=== PATIENT | male | born 1970 | race Two or more races ===

== ENCOUNTER 2020-04-05 08:45 | Inpatient (IN) | payer OTHER ==
[~2020-04-05] VITALS: Ht 167.6 cm; Wt 101.2 kg
[2020-04-05] VITALS (14 sets, daily range): BP systolic 103–130; BP diastolic 49–79
--- NOTE | 2020-04-05 10:22 | Pre-Procedure Note/Attestation ---
Pre-Procedure Note/Attestation Complete Prior to Procedure Planned Procedure: not applicable Procedure Narrative: For Anterior Lumbar Decompression and fusion with internal fixation L4-L5 Indications for Procedure Pre-Operative Diagnosis: Instability L4-5 Attestation I attest that I discussed the nature of the procedure; its benefits; risks and complications; and alternatives (and the risks and benefits of such alternatives), prior to the procedure, with the patient (or the patient's legal key account representative). I attest that, if there was a reasonable possibility of needing a blood transfusion, the patient (or the patient's legal key account representative) was given the [facility] standardized written summary, pursuant to the Jhon Lele Blood Safety Act ([place] Health and Safety Code # 1645, as amended). I attest that I re-evaluated the patient just prior to the surgery and that there has been no change in the patient's H&P, except as documented below: Barrington Mckoy Apr 05, 2020 10:22
[2020-04-05] MEDS ORDERED: Thrombin 5000 units TOPIC ONE (10:46)
[2020-04-05] MEDS ORDERED: Ropivacaine 5mg/ml Vial 30ml INJ ONE (10:46)
[2020-04-05] MEDS ORDERED: Gelfoam Size TOPIC ONE (10:46)
[2020-04-05] MEDS ORDERED: Heparin 5000 units/ml inj ONE (10:46)
[2020-04-05] MEDS ORDERED: Bacitracin 50000 Units Vial ONE (10:46)
[2020-04-05] MEDS ORDERED: Rocuronium Bromide 50mg/5ml Inj IV ONE (10:51)
[2020-04-05] MEDS ORDERED: Ketorolac 30mg Inj IV PRN ×2 (11:10→11:15)
--- NOTE | 2020-04-05 11:10 | Anethesia Preoperative Eval ---
Anesthesia Pre-op PMH/ROS General Date of Evaluation: Apr 05, 2020 Time of Evaluation: 11:31 Anesthesiologist: Judd ASA Score: ASA 2 Mallampati Score Class I : Soft palate, uvula, fauces, pillars visible Class II: Soft palate, uvula, fauces visible Class III: Soft palate, base of uvula visible Class IV: Only hard plate visible Mallampati Classification: Class II Surgeon: Fang Diagnosis: Back Pain Surgical Procedure: ALIF L4-5 Family History: no anesthesia problems Allergies: Coded Allergies: PENICILLINS (Verified Allergy, Intermediate, throat got swollen, can't breath, 04/02/20) Medications: see eMAR Patient NPO?: Yes Past Medical History Hematology/Immune: Reports: other - Renal CA Other: obesity - BMI 37 Anesthesia Pre-op Phys. Exam Physician Exam Last Vital Signs Date Time Temp Pulse Resp B/P (MAP) Pulse Ox O2 Delivery O2 Flow Rate FiO2 04/05/20 09:47 98.0 78 20 124/77 (93) 97 Constitutional: NAD Neurologic: CN 2-12 intact Cardiovascular: RRR Respiratory: CTA Gastrointestinal: S/NT/ND Airway Exam Mallampati Score: Class II MO: full ROM: full Teeth: intact Anesthesia Pre-op A/P Risk Assessment & Plan Assessment: ASA 2 Plan: GA, SED, GlideScope Status Change Before Surgery: No Pre-Antibiotics Dru Grams Ancef IV Given Within 1 Hr of Incision: Yes Time Given: 12:16 Esteban Whaley MD Apr 05, 2020 11:10
[2020-04-05] MEDS ORDERED: Lidocaine 1% MPF 10mg/ml 5ml ONE (11:13)
[2020-04-05] MEDS ORDERED: Sodium Chloride 10ml vial INJ ONE (11:13)
[2020-04-05] MEDS ORDERED: Lidocaine 1% Plain 30 ml INJ ONE (11:14)
[2020-04-05] MEDS ORDERED: Acetaminophen (Non formulary) 100 ML IV ONE (11:15)
[2020-04-05] MEDS ORDERED: oxyCODONE HCL/Acetaminophen 5/325mg ORAL PRN (11:15)
[2020-04-05] MEDS ORDERED: DiphenhydrAMINE 50mg/ml Inj IVP PRN ×2 (11:15→14:00)
[2020-04-05] MEDS ORDERED: Atropine Sulfate 0.4mg/ml inj IVP PRN (11:15)
[2020-04-05] MEDS ORDERED: LORazepam Inj 2mg/ml 1ml IV PRN (11:15)
[2020-04-05] MEDS ORDERED: Meperidine 25mg/1ml Inj (FOR RIGORS ONLY) IV PRN (11:15)
[2020-04-05] MEDS ORDERED: fentaNYL 100 mcg/2 mL IV ONE ×2 (11:15→12:59)
[2020-04-05] MEDS ORDERED: HYDROcodone/Acetamin 5/325 tab ORAL PRN (11:15)
[2020-04-05] MEDS ORDERED: Midazolam 2mg/2ml Inj IVP PRN (11:15)
[2020-04-05] MEDS ORDERED: Labetalol 5mg/ml 20ml vial IV PRN (11:15)
[2020-04-05] MEDS ORDERED: fentaNYL 100 mcg/2 mL IV PRN (11:15)
[2020-04-05] MEDS ORDERED: Hydromorphone 0.5mg/0.5ml inj IVP PRN (11:15)
[2020-04-05] MEDS ORDERED: Metoclopramide 10mg/2ml Inj IVP PRN (11:15)
[2020-04-05] MEDS ORDERED: HYDROcodone/Acetamin 7.5/325 tab ORAL PRN ×3 (11:15→14:00)
[2020-04-05] MEDS ORDERED: LR 1000ml 1,000 ML IVLG SCH (11:15)
[2020-04-05] MEDS ORDERED: LR 1000ml ONE (11:30)
[2020-04-05] MEDS ORDERED: Sterile Water Irrig 1000ml IRRIG ONE (11:30)
[2020-04-05] MEDS ORDERED: NS Irrig 1000ml ONE (11:30)
[2020-04-05] MEDS ORDERED: propofoL 1,000mg/100ml IV ONE (11:30)
[2020-04-05] MEDS ORDERED: Neostigmine 1mg/ml 10ml Inj ONE (13:43)
[2020-04-05] MEDS ORDERED: Glycopyrrolate 0.2mg/ml 1ml Vial ONE (13:43)
--- NOTE | 2020-04-05 13:59 | Operative Note - PDOC ---
Operative Note Operative Note Date of Operation/Procedure: Apr 05, 2020 Chief Complaint: Low Back Pain Pre-op Diagnosis: Instability L4-5 Procedure: ALIF L4-5 with Instrumentation Post-op Diagnosis: same as pre-op Operative Findings: consistent w/pre-op dx studies Surgeon: Fang Finance Attorney: RAMIREZ Mckoy Additional Surgeons: Trimble Vascular Access Anesthesiologist: Sami Lopez Anesthesia: general Specimen: yes Complications: none Condition: stable Estimated Blood Loss: minimal Drains: none Implant(s) used?: Yes - Jose In Fix device, Barrington Yañez Apr 05, 2020 13:59
[2020-04-05] MEDS ORDERED: HYDROmorphone 1mg/ml Carpuject SUBQ PRN (14:00)
[2020-04-05] MEDS ORDERED: LORazepam 1mg tab ORAL PRN (14:00)
[2020-04-05] MEDS ORDERED: PCA Education Pamphlet MISC ONE (14:00)
[2020-04-05] MEDS ORDERED: Acetaminophen 650 MG SUPP RECTAL PRN (14:00)
[2020-04-05] MEDS ORDERED: HYDROmorphone 1mg/ml Carpuject IVP PRN (14:00)
[2020-04-05] MEDS ORDERED: Naloxone 0.4mg/ml Inj IVP PRN ×2 (14:00)
[2020-04-05] MEDS ORDERED: Rate Change PCA 1 Each MISC PRN (14:00)
--- NOTE | 2020-04-05 14:18 | Immediate Post-Op Evaluation ---
Immediate Post-Op Evalulation Immediate Post-Op Evalulation Procedure: ALIF L4-5 Date of Evaluation: Apr 05, 2020 Time of Evaluation: 14:30 IV Fluids: 600 LR Blood Products: 0 Estimated Blood Loss: 90 Urinary Output: 200 Blood Pressure Systolic: 103 Blood Pressure Diastolic: 52 Pulse Rate: 75 Respiratory Rate: 16 O2 Sat by Pulse Oximetry: 99 Temperature (Fahrenheit): 97.3 Pain Score (1-10): 2 Nausea: No Vomiting: No Complications 0 Patient Status: awake, reacts, patent, extubated, none Hydration Status: adequate Dru Grams Ancef IV Given Within 1 Hr of Incision: Yes Time Given: 12:16 Esteban Whaley MD Apr 05, 2020 14:18
--- NOTE | 2020-04-05 14:19 | 48 Hour Post Anesthesia Eval ---
Post Anesthesia Evaluation Procedure: ALIF L4-5 Date of Evaluation: Apr 05, 2020 Time of Evaluation: 16:43 Blood Pressure Systolic: 122 0: 78 Pulse Rate: 75 Respiratory Rate: 18 Temperature (Fahrenheit): 98 O2 Sat by Pulse Oximetry: 99 Airway: patent Nausea: No Vomiting: No Pain Intensity: 2 Hydration Status: adequate Cardiopulmonary Status: Stable Mental Status/LOC: patient returned to baseline Follow-up Care/Observations: 0 Post-Anesthesia Complications: 0 Follow-up care needed: N/A Esteban Whaley MD Apr 05, 2020 14:19
[2020-04-05] MEDS: PCA HYDROmorphone 1mg/ml 30 ML IV PRN (15:04)
--- NOTE | 2020-04-05 15:30 | Operative Note - Dictated ---
DATE OF OPERATION: 04/05/2020 SURGEON: Barrington Headley M.D. and Nathaniel Trimble M.D. Dr. Trimble did the vascular approach and vessel mobilization. CHECK TOTALER: Don Nielsen ANESTHESIOLOGIST: Esteban Whaley M.D ANESTHESIA: General endotracheal with arterial blood pressure monitoring. 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 OPERATIVE PROCEDURE: Left pararectus anterior approach to the L4-5 level with vessel mobilization and retraction using a table-fixed frame, Dr. Trimble, then followed by an anterior annulotomy, nuclear diskectomy, partial vertebrectomy, and open-reduction, internal fixation at the 4-5 level using an InFix cage, medium size, 8 mm of height with 3 + 3 degrees of lordosis. Bone grafting with bone protein was also accomplished. Image intensifier was used as well as a CellSaver. After induction of satisfactory general anesthesia in the supine position. A lateral image was taken to identify the skin incision. Dr. Trimble approached the 4-5 level anteriorly opening the rectus sheath, mobilizing the rectus, and doing a retroperitoneal dissection to expose the anterior spine at 4-5. The artery and vein were both mobilized and retracted exposing the anterior annulus of the 4-5 level including the inferior aspect of the vertebral body of 4 and the superior aspect of the vertebral body of L5. The center of the disc was marked and checked with image and anterior annulotomy was done with a 10-blade and then the cartilaginous endplate and soft disc substance was then removed from front to back using straight and angled curettes, pituitaries, and Kerrison. [id number] retraction and distraction was accomplished using lordotic detachable distractor plugs, which were started at 8 mm, progressed to 12. They were placed from side to side to progressively expose more of the posterior disc space until the anterior annulus was identified, posterior osteophytes removed from the vertebral body of 4 and 5, and a foraminotomy was done on the right and left at 4-5. The space was then templated for a medium 8 mm implant, 3 + 3 degrees of lordosis was added, the plates were inserted and checked for position, AP and lateral. Side struts were then inserted and position was again checked before the construct was locked. BMP was placed between the plates and final x-ray was taken to identify the placement of the implant. The vessels were checked and the wound was closed in layers including the rectus sheath, subcu, and skin. Estimated blood loss was 100 cc. The patient was placed in a compression bandage, returned to recovery room in good condition. Barrington Headley M.D. DR: YOLANDA JOB#: [id number] CC:
--- NOTE | 2020-04-05 17:00 | Operative Note - Dictated ---
DATE OF OPERATION: 04/05/2020 VASCULAR SURGEON: Nathaniel Trimble MD SPINE SURGEON: Barrington Headley MD FLOWER CUTTER: Barrington Mckoy PA-C PREOPERATIVE DIAGNOSIS: Lumbar pain. POSTOPERATIVE DIAGNOSIS: Lumbar pain. PROCEDURE: Anterior retroperitoneal exposure of L4-L5 vertebral space, left retroperitoneal approach. INDICATIONS: Patient is a very pleasant gentleman who was seen prior to surgery. He has been scheduled for an anterior spine operation at L4-L5. He has a prior robotic partial left nephrectomy. He has a small transverse incision in the left upper quadrant. He does not have any history of deep venous thrombosis or bleeding complications. He was made aware of the risks of vascular surgery including vascular injury, possible need for blood transfusion, deep venous thrombosis. DESCRIPTION OF FINDINGS: A vertical midline incision was used. A left retroperitoneal approach was used. There was somewhat transitional type anatomy at L4-L5 being displaced somewhat caudally with relationship to the iliac artery and vein. However, exposure of L4-L5 obtained above the iliac bifurcation with retraction of left iliac vessels inferiorly and medially. On completion, the peritoneum and ureter were intact. Iliac vessels were intact. Blood loss approximately 100 mL. There were palpable femoral pulses bilaterally. Complications were none. DESCRIPTION OF PROCEDURE: Patient was taken to the operative room. General anesthesia was used. Antibiotics were given. Patient's abdomen was prepped and draped. Appropriate time-out for the procedure taken. An infraumbilical incision was made vertically with extension just to the left side of the umbilicus. Anterior fascia was divided longitudinally in the midline. A plane was identified posterior to the left. Rectus abdominis developed posterolaterally to the patient's left. The retroperitoneal space was bluntly entered below the arcuate line. The peritoneum and ureter mobilized towards the patient's right exposing the left common iliac artery and vein. Dissection was carried lateral to the left common iliac vessels overlying the fascia, ligated with vascular clips. The lateral border of the left iliac vein was skeletonized and the left iliolumbar vein was identified. It was encircled with a 2-0 silk tie and ligated proximally and then ligated proximally and distally with vascular clips and divided. The L4 segmental artery and vein were also identified and ligated with vascular clips and this allowed safe mobilization of the left iliac artery and vein towards the patient's right exposing the anterior surface of L4-L5. The Omni retractor blades were then placed. Fluoroscopy used to confirm the appropriate level and instrumentation performed at L4-L5 dictated separately. On completion, retractor gently removed. Peritoneum and ureter were intact. Iliac vessels were intact. Anterior fascia was then closed using #1 PDS in a running fashion. Skin and subcutaneous tissue were closed with 3-0 Vicryl, 4-0 Monocryl in a running subcuticular closure technique. Nathaniel Trimble M.D. DR: LORRAINE JOB#: [id number] CC:
--- NOTE | 2020-04-05 17:13 | Diagnostic Imaging Report ---
Indication: Reason For Exam: PAIN Technique: Intraoperative fluoroscopy with [address] Headley. Fluoroscopy time 10.6 seconds, total dose 5.33mGy Comparison: None. Findings: Intraoperative fluoroscopy demonstrates interbody fusion of the L4-L5 vertebral space. IMPRESSION: Intraoperative fluoroscopy of L4-L5 interbody fusion. Please refer to operative report for more detail.
[2020-04-05] MEDS: PCA shift volume MISC SCH (19:28)
[2020-04-05] MEDS: ceFAZolin sod 1 GM in D5W 55 ML IV SCH (20:36)
[2020-04-06] MEDS: ceFAZolin sod 1 GM in D5W 55 ML IV SCH ×2 (03:55→11:57)
[2020-04-06 03:57] VITALS: BP 110/69
[2020-04-06] MEDS: PCA shift volume MISC SCH ×2 (07:22→19:15)
[2020-04-06 08:00] VITALS: BP 113/70
--- NOTE | 2020-04-06 08:51 | General Progress Note ---
Subjective Allergies: Coded Allergies: PENICILLINS (Verified Allergy, Intermediate, throat got swollen, can't breath, 04/02/20) Subjective asked to follow Objective Last 24 Hour Vital Signs Date Time Temp Pulse Resp B/P (MAP) Pulse Ox O2 Delivery O2 Flow Rate FiO2 04/06/20 04:00 95 04/06/20 03:57 97.9 95 16 110/69 (83) 95 04/06/20 00:00 95 04/05/20 23:46 98.0 99 16 114/74 (87) 95 04/05/20 21:00 Nasal Cannula 3.0 04/05/20 20:00 95 04/05/20 20:00 98.2 105 17 119/77 (91) 95 04/05/20 17:30 97.9 108 16 123/77 (92) 95 04/05/20 16:30 98.0 102 16 127/75 (92) 95 04/05/20 16:00 95 04/05/20 16:00 98.0 98 16 128/74 (92) 96 04/05/20 15:34 13 04/05/20 15:30 98.0 94 16 130/74 (92) 94 04/05/20 15:26 97.1 04/05/20 15:26 97.1 04/05/20 15:19 17 04/05/20 15:15 97.1 92 15 123/74 98 Nasal Cannula 3 04/05/20 15:04 15 04/05/20 15:00 88 13 119/70 98 Nasal Cannula 3 04/05/20 14:45 76 15 121/79 98 Simple Mask 6 04/05/20 14:35 78 20 109/71 97 Simple Mask 6 04/05/20 14:25 82 18 105/68 97 Simple Mask 6 04/05/20 14:20 83 20 105/62 97 Simple Mask 6 04/05/20 14:19 75 18 99 04/05/20 14:18 75 16 99 04/05/20 14:15 97.6 85 14 103/49 97 Simple Mask 6 04/05/20 09:47 98.0 78 20 124/77 (93) 97 Intake and Output 04/05/20 04/06/20 19:00 07:00 Intake Total 900 ml 800 ml Output Total 490 ml 650 ml Balance 410 ml 150 ml Intake Oral 0 ml IV Total 900 ml 800 ml Output Urine Total 400 ml 650 ml Estimated Blood Loss 90 ml # Voids 1 Height (Feet): 5 Height (Inches): 6.00 Weight (Pounds): 223 Objective WDWN NAD clear breath sounds bilaterally without rhonchi or wheeze [id number] without MRG NABS nontender no HSM no CCE nonfocal Assessment/Plan Assessment/Plan: Low Back Pain Instability L4-5 ALIF L4-5 with Instrumentation PLAN 1. incentive spirometry 2. SCD 3. PT evaluation and therapy 4. Hydration 5. Pain management 6. discharge once stable with outpatient follow up Jayce Jackman MD Apr 06, 2020 08:51
[2020-04-06 12:00] VITALS: BP 96/56
[2020-04-06 16:00] VITALS: BP 117/74
[2020-04-06] MEDS: PCA HYDROmorphone 1mg/ml 30 ML IV PRN (19:21)
[2020-04-06 20:00] VITALS: BP 109/74
[2020-04-06 23:49] VITALS: BP 118/75
[2020-04-07 04:00] VITALS: BP 117/76
[2020-04-07] MEDS: PCA shift volume MISC SCH ×2 (07:04→19:22)
[2020-04-07 08:00] VITALS: BP 106/70
--- NOTE | 2020-04-07 09:33 | General Progress Note ---
Subjective Allergies: Coded Allergies: PENICILLINS (Verified Allergy, Intermediate, throat got swollen, can't breath, 04/02/20) Subjective care noted reviewed and discussed Objective Last 24 Hour Vital Signs Date Time Temp Pulse Resp B/P (MAP) Pulse Ox O2 Delivery O2 Flow Rate FiO2 04/07/20 09:02 97.8 04/07/20 04:00 97.8 90 18 117/76 (90) 93 04/07/20 04:00 93 04/06/20 23:51 95 04/06/20 23:49 98.2 96 18 118/75 (89) 95 04/06/20 21:00 Room Air 04/06/20 20:00 98.1 98 18 109/74 (86) 92 04/06/20 20:00 92 04/06/20 19:51 98.2 04/06/20 16:00 98.2 95 18 117/74 (88) 95 04/06/20 16:00 95 04/06/20 12:00 94 04/06/20 12:00 97.9 93 20 96/56 (69) 94 Intake and Output 04/06/20 04/07/20 19:00 07:00 Output Total 950 ml Balance -950 ml Output Urine Total 950 ml # Voids 2 Height (Feet): 5 Height (Inches): 6.00 Weight (Pounds): 223 Objective WDWN NAD clear breath sounds bilaterally without rhonchi or wheeze [id number] without MRG NABS nontender no HSM no CCE nonfocal Assessment/Plan Assessment/Plan: Low Back Pain Instability L4-5 ALIF L4-5 with Instrumentation PLAN 1. incentive spirometry 2. SCD 3. PT evaluation and therapy 4. Hydration 5. Pain management 6. discharge once stable with outpatient follow up Jayce Jackman MD Apr 07, 2020 09:33
[2020-04-07 12:00] VITALS: BP 109/81
[2020-04-07] MEDS ORDERED: LORazepam 1mg tab ORAL PRN (13:00)
[2020-04-07] MEDS ORDERED: Naloxone 0.4mg/ml Inj IVP PRN (13:00)
[2020-04-07] MEDS ORDERED: PCA HYDROmorphone 1mg/ml 30 ML IV PRN (13:00)
[2020-04-07] MEDS ORDERED: DiphenhydrAMINE 50mg/ml Inj IVP PRN (13:00)
[2020-04-07] MEDS ORDERED: Rate Change PCA 1 Each MISC PRN (13:00)
--- NOTE | 2020-04-07 13:18 | General Surgery Progress Note ---
General Surgery-Progress Note Subjective Procedure Performed ALIF L4-5 with Instrumentation Chief Complaint: Wants to drink water Symptoms: improved Objective Last 24 Hour Vital Signs Date Time Temp Pulse Resp B/P (MAP) Pulse Ox O2 Delivery O2 Flow Rate FiO2 04/07/20 09:54 98 Room Air 04/07/20 09:02 97.8 04/07/20 08:00 98.5 93 20 106/70 (82) 99 04/07/20 04:00 97.8 90 18 117/76 (90) 93 04/07/20 04:00 93 04/06/20 23:51 95 04/06/20 23:49 98.2 96 18 118/75 (89) 95 04/06/20 21:00 Room Air 04/06/20 20:00 98.1 98 18 109/74 (86) 92 04/06/20 20:00 92 04/06/20 19:51 98.2 04/06/20 16:00 98.2 95 18 117/74 (88) 95 04/06/20 16:00 95 I&O Intake and Output 04/06/20 04/07/20 19:00 07:00 Output Total 950 ml Balance -950 ml Output Urine Total 950 ml # Voids 2 Dressing: dry Wound: clean Drains: none Abdomen: soft - Absent bowel sounds Additional Comments Patient NPO until GI tract wakes up Barrington Nuñez Apr 07, 2020 13:18
[2020-04-07 16:00] VITALS: BP 112/80
[2020-04-07 20:00] VITALS: BP 116/79
[2020-04-08 04:00] VITALS: BP 113/78
[2020-04-08] MEDS: PCA shift volume MISC SCH ×2 (07:00→19:00)
[2020-04-08 08:00] VITALS: BP 114/77
--- NOTE | 2020-04-08 11:26 | General Progress Note ---
Subjective Allergies: Coded Allergies: PENICILLINS (Verified Allergy, Intermediate, throat got swollen, can't breath, 04/02/20) Subjective care noted reviewed and discussed Objective Last 24 Hour Vital Signs Date Time Temp Pulse Resp B/P (MAP) Pulse Ox O2 Delivery O2 Flow Rate FiO2 04/08/20 11:13 96 04/08/20 09:00 Room Air 04/08/20 08:00 98.4 83 18 114/77 (89) 95 04/08/20 07:53 97 Room Air 21 04/08/20 04:25 95 04/08/20 04:00 95 04/08/20 04:00 98.2 88 14 113/78 (90) 95 04/08/20 00:00 95 04/07/20 21:00 Room Air 04/07/20 21:00 96 Room Air 21 04/07/20 20:00 95 04/07/20 20:00 98.7 95 16 116/79 (91) 95 04/07/20 16:00 98.2 95 20 112/80 (91) 94 04/07/20 16:00 95 04/07/20 12:00 93 04/07/20 12:00 97.9 92 18 109/81 (90) 93 Intake and Output 04/07/20 04/08/20 19:00 07:00 Output Total 600 ml Balance -600 ml Output Urine Total 600 ml # Voids 3 Height (Feet): 5 Height (Inches): 6.00 Weight (Pounds): 223 Objective WDWN NAD clear breath sounds bilaterally without rhonchi or wheeze [id number] without MRG NABS nontender no HSM no CCE nonfocal Assessment/Plan Assessment/Plan: Low Back Pain Instability L4-5 ALIF L4-5 with Instrumentation PLAN 1. incentive spirometry 2. SCD 3. PT evaluation and therapy 4. Hydration; advance diet 5. Pain management 6. discharge once stable with outpatient follow up Jayce Jackman MD Apr 08, 2020 11:26
[2020-04-08 12:00] VITALS: BP 112/76
[2020-04-08 16:00] VITALS: BP 126/78
[2020-04-08 20:00] VITALS: BP 111/76
[2020-04-09] VITALS: BP 111/73
[2020-04-09 04:00] VITALS: BP 112/78
[2020-04-09] MEDS: PCA shift volume MISC SCH (07:00)
[2020-04-09 08:00] VITALS: BP 112/75
--- NOTE | 2020-04-09 08:25 | General Progress Note ---
Subjective Allergies: Coded Allergies: PENICILLINS (Verified Allergy, Intermediate, throat got swollen, can't breath, 04/02/20) Subjective care noted reviewed and discussed Objective Last 24 Hour Vital Signs Date Time Temp Pulse Resp B/P (MAP) Pulse Ox O2 Delivery O2 Flow Rate FiO2 04/09/20 08:08 95 Room Air 21 04/09/20 04:00 99 04/09/20 04:00 98.1 78 16 112/78 (89) 99 04/09/20 00:00 98.8 81 17 111/73 (86) 97 04/09/20 00:00 97 04/08/20 21:00 Room Air 04/08/20 20:45 95 Room Air 21 04/08/20 20:00 99.2 88 18 111/76 (88) 95 04/08/20 20:00 95 04/08/20 16:00 98.2 82 17 126/78 (94) 96 04/08/20 16:00 96 04/08/20 12:00 98.0 85 20 112/76 (88) 96 04/08/20 11:13 96 04/08/20 09:00 Room Air Intake and Output 04/08/20 04/09/20 19:00 07:00 Intake Total 800 ml 600 ml Output Total 750 ml 850 ml Balance 50 ml -250 ml Intake Oral 800 ml 600 ml Output Urine Total 750 ml 850 ml # Voids 4 4 Height (Feet): 5 Height (Inches): 6.00 Weight (Pounds): 223 Objective WDWN NAD clear breath sounds bilaterally without rhonchi or wheeze [id number] without MRG NABS nontender no HSM no CCE nonfocal Assessment/Plan Assessment/Plan: Low Back Pain Instability L4-5 ALIF L4-5 with Instrumentation PLAN 1. incentive spirometry 2. SCD 3. PT evaluation and therapy 4. Hydration; advance diet as tolerated 5. Pain management 6. discharge planning Jayce Jackman MD Apr 09, 2020 08:25
[2020-04-09 12:00] VITALS: BP 115/77
[2020-04-09 16:00] VITALS: BP 108/76
[2020-04-09 20:00] VITALS: BP 117/79
[2020-04-10] VITALS: BP 110/73
[2020-04-10 04:00] VITALS: BP 112/75
[2020-04-10 08:00] VITALS: BP 101/61
--- NOTE | 2020-04-10 09:24 | General Progress Note ---
Subjective Allergies: Coded Allergies: PENICILLINS (Verified Allergy, Intermediate, throat got swollen, can't breath, 04/02/20) Subjective care noted reviewed and discussed Objective Last 24 Hour Vital Signs Date Time Temp Pulse Resp B/P (MAP) Pulse Ox O2 Delivery O2 Flow Rate FiO2 04/10/20 08:00 97.9 78 20 101/61 (74) 97 04/10/20 07:05 95 Room Air 21 04/10/20 04:00 98.1 80 18 112/75 (87) 95 04/10/20 00:00 97.7 75 18 110/73 (85) 96 04/09/20 21:00 Room Air 04/09/20 20:00 97.2 82 20 117/79 (92) 95 04/09/20 19:18 93 Room Air 21 04/09/20 16:00 98.5 84 20 108/76 (87) 97 04/09/20 15:59 99 04/09/20 12:00 98.2 91 18 115/77 (90) 97 Intake and Output 04/09/20 04/10/20 19:00 07:00 Intake Total 800 ml 1500 ml Output Total 1450 ml Balance 800 ml 50 ml Intake Oral 800 ml 450 ml IV Total 1050 ml Output Urine Total 1450 ml # Voids 6 # Bowel Movements 1 Height (Feet): 5 Height (Inches): 6.00 Weight (Pounds): 223 Objective WDWN NAD clear breath sounds bilaterally without rhonchi or wheeze [id number] without MRG NABS nontender no HSM no CCE nonfocal Assessment/Plan Assessment/Plan: Low Back Pain Instability L4-5 ALIF L4-5 with Instrumentation PLAN 1. incentive spirometry 2. SCD 3. PT evaluation and therapy 4. Hydration; advance diet as tolerated 5. Pain management 6. discharge planning Jayce Jackman MD Apr 10, 2020 09:24
== END 2020-04-10 13:00 | disposition home or self-care (01) | DRG 460 ==
LOC: SDSOVERFLO 08:45 → 3E 15:25
PROC: 0SG00A0 Fusion of Lumbar Vertebral Joint with Interbody Fusion Device, Anterior Approach, Anterior Column, Open Approach (ICD-10-PCS; principal; 2020-04-05 11:30)
PROC: 0ST20ZZ Resection of Lumbar Vertebral Disc, Open Approach (ICD-10-PCS; principal; 2020-04-05 11:30)
PROC: 3E0U0GB Introduction of Recombinant Bone Morphogenetic Protein into Joints, Open Approach (ICD-10-PCS; principal; 2020-04-05 11:30)
DX: M51.16 Intervertebral disc disorders with radiculopathy, lumbar region (principal); M53.2X6 Spinal instabilities, lumbar region
CPT/HCPCS: 36415; 72020; 76000; 86850; 86900; 86901; 87081; 93970; 94003; 94150; J2180; J2405; J2710; J8499; U0002